=== PATIENT | male | born 1970 | race Caucasian/White ===

== ENCOUNTER 2017-07-19 19:53 | Emergency (ER) | payer MEDICARE, OTHER ==
[~2017-07-19] VITALS: Ht 175.3 cm; Wt 93.0 kg
[2017-07-19] MEDS: LORAZEPAM 2 MG INJ IV ONE ×2 (12:24→23:23)
[2017-07-19 19:59] VITALS: Ht 175.3 cm; Wt 93.0 kg
[2017-07-19 22:25] LABS: BASOPHILS % 0.5 % (0.0-2.0); EOSINOPHILS # 0.1 10^3/ul (0.0-0.5); HEMATOCRIT 42.2 % (42.0-52.0); HEMOGLOBIN 14.3 g/dl (14.0-18.0); LYMPHOCYTES % 49.5 % (15.0-51.0); MEAN CORPUSCULAR HEMOGLOBIN 32.3 pg (29.0-33.0); MEAN CORPUSCULAR HGB CONC 33.9 g/dl (32.0-37.0); MEAN CORPUSCULAR VOLUME 95.3 fl (82.0-101.0); MEAN PLATELET VOLUME 10.3 fl (7.4-10.4); MONOCYTE # 0.5 10^3/ul (0.3-0.9); MONOCYTES % 8.7 % (0.0-11.0); NEUTROPHIL # 2.4 10^3/ul (1.6-7.5); PLATELET COUNT 139 10^3/UL (140-415); POSITIVE DIFF @See below; RED BLOOD COUNT 4.43 10^6/ul (4.70-6.10); RED CELL DISTRIBUTION WIDTH 11.9 % (11.5-14.5); WHITE BLOOD COUNT 6.1 10^3/ul (4.8-10.8)
[2017-07-19 22:48] LABS: ALANINE AMINOTRANSFERASE 33 IU/L (13-69); ALBUMIN 4.2 g/dl (3.3-4.9); ALBUMIN/GLOBULIN RATIO 1.35; ALKALINE PHOSPHATASE 67 IU/L (42-121); ANION GAP 13 (8-16); ASPARTATE AMINO TRANSFERASE 28 IU/L (15-46); BILIRUBIN,INDIRECT 0.1 mg/dl (0-1.1); BILIRUBIN,TOTAL 0.1 mg/dl (0.2-1.3); BLOOD UREA NITROGEN 15 mg/dl (7-20); CALCIUM 9.2 mg/dl (8.4-10.2); CARBON DIOXIDE 26 mmol/L (21-31); CHLORIDE 105 mmol/L (97-110); CREATININE 0.87 mg/dl (0.61-1.24); GLUCOSE 96 mg/dl (70-220); POTASSIUM 4.3 mmol/L (3.5-5.1); SODIUM 140 mmol/L (135-144); TOTAL PROTEIN 7.3 g/dl (6.1-8.1)
[2017-07-19 22:49] LABS: BARBITURATES Negative (NEGATIVE); BENZODIAZEPINES Negative (NEGATIVE); CANNABINOIDS Negative (NEGATIVE); COCAINE Negative (NEGATIVE); OPIATES Negative (NEGATIVE)
[2017-07-19 22:50] LABS: ETHANOL < 10.0 mg/dl
--- NOTE | 2017-07-19 22:50 | ERD ---
ER Documentation Chief Complaint Date/Time DATE: 07/19/17 TIME: 22:46 Chief Complaint BIB RA FOR ANXIETY AT HOME, HX OF AUTISM HPI Is a 47-year-old male with a history of mental retardation, anxiety, learning disability who is here for agitation. The patient says that he is having anxiety as well. For the past 2 days the patient's been very difficult to deal with that his adult halfway. Has been irritable and angry and picking fights with the staff and throwing things. The patient says he is having anxiety attacks with chest pain shortness of breath tremors sense of impending doom. The patient says she has had these anxiety attacks multiple times in the past and it is the same. The patient was admitted to a psych hospital for hearing voices for due to psychosis in January but he is not hearing voices now. He says he is not suicidal or homicidal. ROS All systems reviewed and are negative except as per history of present illness. Medications Home Meds Reported Medications Quetiapine Fumarate* (Seroquel* XR) 400 Mg Tab.sr.24h, 400 MG PO QHS, #30 TAB 07/20/17 Quetiapine Fumarate* (Quetiapine Fumarate*) 100 Mg Tablet, 100 MG PO BID, TAB 07/20/17 Benazepril Hcl* (Benazepril Hcl*) 10 Mg Tablet, 10 MG PO DAILY, #30 TAB 07/20/17 Naproxen* (Naproxen*) 500 Mg Tablet, 500 MG PO BID Y for PAIN LEVEL 1-5, TAB 07/20/17 Benztropine Mesylate* (Benztropine Mesylate*) 0.5 Mg Tablet, 0.5 MG PO TID, TAB 07/20/17 Carbamazepine* (Tegretol*) 100 Mg/5 Ml Susp, 200 MG GTB BID, ML 07/20/17 Divalproex Sodium* (Depakote ER*) 500 Mg Tabsr, 500 MG PO BID, #30 TAB.SA 07/20/17 Fluvoxamine Maleate* (Luvox*) 50 Mg Tab, 100 MG PO DAILY, TAB TAKE 1 AND 1/2 TABLETS BY MOUTH DAILY 07/20/17 Nicotine* (Nicotine* Patch) 21 mg/day Patch, 1 EACH TD DAILY, PATCH 07/20/17 Allergies Allergies: Coded Allergies: No Known Allergy (Unverified , 07/19/17) PMhx/Soc Hx Neurological Disorder: Yes (seizure disorder) Hx Cardiac Disorders: Yes (htn) Hx Psychiatric Problems: No Hx Miscellaneous Medical Probl: Yes (anxiety, mental retardation, intermittent disorder) Hx Alcohol Use: No Hx Substance Use: No Hx Tobacco Use: Yes Smoking Status: Current every day smoker FmHx Family History: No coronary disease Physical Exam Vitals Vital Signs Date Time Temp Pulse Resp B/P Pulse Ox O2 Delivery O2 Flow Rate FiO2 07/19/17 19:59 98.5 92 18 148/91 100 Physical Exam Const: Well-developed, well-nourished Head: Atraumatic, normocephalic Eyes: Normal Conjunctiva, PERRLA, EOMI, normal sclera, no nystagmus ENT: Normal External Ears, Nose and Mouth, moist mucus membranes. Neck: Full range of motion. No meningismus, no lymphadenopathy. Resp: Clear to auscultation bilaterally, no wheezing, rhonchi, rales Cardio: Regular rate and rhythm, no murmurs, S1 S2 present Abd: Soft, non tender x 4, non distended. Normal bowel sounds, no guarding or rebound, no pulsitile abdominal masses or bruits Skin: No petechiae or rashes, no ecchymosis , no maculopapular rash Back: No midline or flank tenderness Ext: No cyanosis, or edema, FROM x 4, normal inspection, neurovascularly intact x 4 Neur: Awake and alert, STR 5/5 x 4, sensation intact x 4, no focal findings, cerebellum intact Psych: Anxious] Result Diagram: 07/19/17219907/19/172199 Results 24 hrs Laboratory Tests Test 07/19/17 22:00 07/19/17 22:09 07/19/17 22:20 White Blood Count 6.110^3/ul Red Blood Count 4.4310^6/ul Hemoglobin 14.3g/dl Hematocrit 42.2% Mean Corpuscular Volume 95.3fl Mean Corpuscular Hemoglobin 32.3pg Mean Corpuscular Hemoglobin Concent 33.9g/dl Red Cell Distribution Width 11.9% Platelet Count 15721^3/UL Mean Platelet Volume 10.3fl Neutrophils % 40.0% Lymphocytes % 49.5% Monocytes % 8.7% Eosinophils % 1.0% Basophils % 0.5% Nucleated Red Blood Cells % 0.0/100WBC Neutrophils # 2.410^3/ul Lymphocytes # 3.010^3/ul Monocytes # 0.510^3/ul Eosinophils # 0.110^3/ul Basophils # 0.010^3/ul Nucleated Red Blood Cells # 0.010^3/ul Sodium Level 140mmol/L Potassium Level 4.3mmol/L Chloride Level 105mmol/L Carbon Dioxide Level 26mmol/L Anion Gap 13 Blood Urea Nitrogen 15mg/dl Creatinine 0.87mg/dl Glucose Level 96mg/dl Calcium Level 9.2mg/dl Total Bilirubin 0.1mg/dl Direct Bilirubin 0.00mg/dl Indirect Bilirubin 0.1mg/dl Aspartate Amino Transf (AST/SGOT) 28IU/L Alanine Aminotransferase (ALT/SGPT) 33IU/L Alkaline Phosphatase 67IU/L Total Protein 7.3g/dl Albumin 4.2g/dl Globulin 3.10g/dl Albumin/Globulin Ratio 1.35 Ethyl Alcohol Level < 10.0mg/dl Urine Opiates Screen Negative Urine Barbiturates Negative Urine Amphetamines Screen Negative Urine Benzodiazepines Screen Negative Urine Cocaine Screen Negative Urine Cannabinoids Negative Troponin I < 0.012ng/ml Current Medications Medications (Trade) Dose Ordered Sig/Benson Route PRN Reason Start Time Stop Time Status Last Admin Dose Admin Lorazepam (Ativan) 1 mg ONCE ONCE IV 07/19/17 22:30 07/19/17 22:31 DC 07/20/17 00:25 Procedures/MDM EKG: Rate/Rhythm: Normal Sinus Rhythm,NL intervals QRS, ST, QT: NORMAL ME, QRS, QT] Impression: NORMAL EKG Patient was evaluated by telemetry psychiatrist recommended 5150 hold. Patient apparently told the psychiatrist that he is hearing voices telling him to hurt his fellow staff members at his adult halfway. He did not elicit this information to me. He is placed on a 5150 hold and will be transferred to psych inpatient Departure Diagnosis: Primary Impression: Anxiety Additional Impression: Psychosis Psychosis type: unspecified psychosis type Qualified Code: F29 - Psychosis, unspecified psychosis type Condition: Stable JOSEMANUEL KILLIAN DO Jul 19, 2017 22:50
[2017-07-20] MEDS ORDERED: UDTEG GTB (00:17)
[2017-07-20] MEDS ORDERED: BENZ0.5T3 PO (00:17)
[2017-07-20] MEDS ORDERED: BENA10TA48 PO (00:17)
[2017-07-20] MEDS ORDERED: QUET100T32 PO (00:17)
[2017-07-20] MEDS ORDERED: NICO1PAT6 TD (00:17)
[2017-07-20] MEDS ORDERED: NAPR-688 PO (00:17)
[2017-07-20] MEDS ORDERED: DIVA500T7 PO (00:17)
[2017-07-20] MEDS ORDERED: BLVX50T PO (00:17)
[2017-07-20] MEDS ORDERED: QUET400T4 PO (00:17)
[2017-07-20] MEDS: LORAZEPAM 2 MG INJ IV ONE (00:25)
--- NOTE | 2017-07-20 00:31 | PSY ---
Date/Time of Note Date/Time of Note DATE: 07/20/17 TIME: 00:14 Psychiatric Subjective Eval Consent Pt consented to telemedicine: Yes Subjective Evaluation Patient location: emergency Chief Complaint: BIB RA FOR ANXIETY AT HOME, HX OF AUTISM Reason for consult: agitation History of present illness patient is a 47 yo male with PPH Of mild MR and schizoaffective do who lives in a adult residential home that was brought in by his care givers from the residence due to 2 weeks of worsening agitation. His chiropractic care states that he started to share with them that he was hearing voices telling him to hurt other people, he started to become more and more disorganized and agitated, pushing residents around, hitting his hand against the wall not compliant to rules, paranoid and having anxiety attacks. He had a similar episode few months ago, was admitted and his medication were adjusted and he did really well until about 2 weeks ago. No change of environment, no change of staff or residents, no change of family visits, no recent change of medication. he sleeps and eat well. patient tells me " i hear voices telling me to hurt a client" , denies any SI, denies feeling depressed, he says " i have panic attack and chest pain" no drug or alcohol use. Hospitalization: yes Family History none Medical history Problems Medical Problems: (1) Anxiety Status: Acute Allergies: Coded Allergies: No Known Allergy (Unverified , 07/19/17) Substance Abuse Substance use: No known substance abuse Social History Marital status: single Level of education: hs DPA/Conservatorship: No Occupation/Shelter: no Psychiatric Objective Eval Review of Systems: Review of Systems: Not Applicable Physical Examination: Physical Examination: Applicable Sleep: Adequate Appetite: Adequate Energy: Adequate Interest: Adequate Mental Status Examination: Appearance: Groomed Eye Contact: Good Psychomotor Activity: Normal Behavior: Cooperative Speech: Clear AFFECT: Appropriate, Depressed, Anxious Mood: Anxious Though Process: Linear Thought Content: Hallucinations Suicidal: No Homicidal: Yes On 72 hour hold: No Orientation: x2 Insight: Impared Judgement: Impared Attention Span: Intact Laboratory Results Laboratory Tests Test 07/19/17 22:00 07/19/17 22:09 07/19/17 22:20 White Blood Count 6.110^3/ul Red Blood Count 4.4310^6/ul Hemoglobin 14.3g/dl Hematocrit 42.2% Mean Corpuscular Volume 95.3fl Mean Corpuscular Hemoglobin 32.3pg Mean Corpuscular Hemoglobin Concent 33.9g/dl Red Cell Distribution Width 11.9% Platelet Count 10604^3/UL Mean Platelet Volume 10.3fl Neutrophils % 40.0% Lymphocytes % 49.5% Monocytes % 8.7% Eosinophils % 1.0% Basophils % 0.5% Nucleated Red Blood Cells % 0.0/100WBC Neutrophils # 2.410^3/ul Lymphocytes # 3.010^3/ul Monocytes # 0.510^3/ul Eosinophils # 0.110^3/ul Basophils # 0.010^3/ul Nucleated Red Blood Cells # 0.010^3/ul Sodium Level 140mmol/L Potassium Level 4.3mmol/L Chloride Level 105mmol/L Carbon Dioxide Level 26mmol/L Anion Gap 13 Blood Urea Nitrogen 15mg/dl Creatinine 0.87mg/dl Glucose Level 96mg/dl Calcium Level 9.2mg/dl Total Bilirubin 0.1mg/dl Direct Bilirubin 0.00mg/dl Indirect Bilirubin 0.1mg/dl Aspartate Amino Transf (AST/SGOT) 28IU/L Alanine Aminotransferase (ALT/SGPT) 33IU/L Alkaline Phosphatase 67IU/L Total Protein 7.3g/dl Albumin 4.2g/dl Globulin 3.10g/dl Albumin/Globulin Ratio 1.35 Ethyl Alcohol Level < 10.0mg/dl Urine Opiates Screen Negative Urine Barbiturates Negative Urine Amphetamines Screen Negative Urine Benzodiazepines Screen Negative Urine Cocaine Screen Negative Urine Cannabinoids Negative Troponin I < 0.012ng/ml Assessment and Plan Assessment/Diagnosis [place] I: schizoaffective do depressed type anxiety do nos [place] II: mild MR [place] III: seizure do [place] IV: poor social support [place] V: gaf 25 Recommendation/Plan Medication Management ativan 0.5 mg po tid for anxiety add fluvoxamine 25 mg po qam to the 100 mg but if the 100 mg in am then give qhs if qhs then give am for anxiety continue all other medication Follow-up/Disposition Patient cannot be treated at a lower level of care today due to danger to others and GRAVE DISABLITY including an inability to carry out basic transactions necessary for survival in these areas and as evidenced by these behaviors: - Unable to seek out Food, Unable to seek out Clothing, Unable to seek out Prison, Severe Financial Incompetence, Severe Failure to Adjust in the Community, Severe Incompetence in Regards to Health Self-Management - Patient is labile,intrusive and socially inappropriate with personal boundaries - Confused, disoriented and/or grossly unable to distinguish reality from illusion -Requires near constant monitoring to prevent inadvertent danger to self and others -No family members willing and able to care for patient in the community with this mental state 5150 Recommendation: Place RICCI Bynum MD Jul 20, 2017 00:26
--- NOTE | 2017-07-20 17:43 | PSY ---
Date/Time of Note Date/Time of Note DATE: 07/20/17 TIME: 17:38 Psychiatric Subjective Eval Consent Pt consented to telemedicine: Yes Subjective Evaluation Patient location: emergency Chief Complaint: BIB RA FOR ANXIETY AT HOME, HX OF AUTISM Reason for consult: agitation History of present illness patient is a 47 yo male with PPH Of mild MR and schizoaffective do who lives in a adult residential home that was brought in by his care givers from the residence due to 2 weeks of worsening agitation. His caregiver services home states that he started to share with them that he was hearing voices telling him to hurt other people, he started to become more and more disorganized and agitated, pushing residents around, hitting his hand against the wall not compliant to rules, paranoid and having anxiety attacks. He had a similar episode few months ago, was admitted and his medication were adjusted and he did really well until about 2 weeks ago. No change of environment, no change of staff or residents, no change of family visits, no recent change of medication. he sleeps and eat well. patient tells me " i hear voices telling me to hurt a client" , denies any SI, denies feeling depressed, he says " i have panic attack and chest pain" no drug or alcohol use. Pt states, he hears voices telling him to hurt himself and others, he needs to "go somethere where they will adjust meds". Not able to contract for safety. Anxious. Hospitalization: yes Medical history Problems Medical Problems: (1) Anxiety Status: Acute (2) Psychosis Status: Acute Allergies: Coded Allergies: No Known Allergy (Unverified , 07/19/17) Substance Abuse Substance use: No known substance abuse Social History Marital status: single Level of education: hs DPA/Conservatorship: No Occupation/Fpc: no Psychiatric Objective Eval Mental Status Examination: Appearance: Disheveled Eye Contact: Fair Psychomotor Activity: Normal Behavior: Cooperative Speech: Clear AFFECT: Blunt Mood: Anxious Though Process: Perseverative Thought Content: Hallucinations Suicidal: Yes Homicidal: Yes Orientation: x2 Cognition: Alert Insight: Impared Judgement: Impared Laboratory Results Laboratory Tests Test 07/19/17 22:00 07/19/17 22:09 07/19/17 22:20 White Blood Count 6.110^3/ul Red Blood Count 4.4310^6/ul Hemoglobin 14.3g/dl Hematocrit 42.2% Mean Corpuscular Volume 95.3fl Mean Corpuscular Hemoglobin 32.3pg Mean Corpuscular Hemoglobin Concent 33.9g/dl Red Cell Distribution Width 11.9% Platelet Count 58529^3/UL Mean Platelet Volume 10.3fl Neutrophils % 40.0% Lymphocytes % 49.5% Monocytes % 8.7% Eosinophils % 1.0% Basophils % 0.5% Nucleated Red Blood Cells % 0.0/100WBC Neutrophils # 2.410^3/ul Lymphocytes # 3.010^3/ul Monocytes # 0.510^3/ul Eosinophils # 0.110^3/ul Basophils # 0.010^3/ul Nucleated Red Blood Cells # 0.010^3/ul Sodium Level 140mmol/L Potassium Level 4.3mmol/L Chloride Level 105mmol/L Carbon Dioxide Level 26mmol/L Anion Gap 13 Blood Urea Nitrogen 15mg/dl Creatinine 0.87mg/dl Glucose Level 96mg/dl Calcium Level 9.2mg/dl Total Bilirubin 0.1mg/dl Direct Bilirubin 0.00mg/dl Indirect Bilirubin 0.1mg/dl Aspartate Amino Transf (AST/SGOT) 28IU/L Alanine Aminotransferase (ALT/SGPT) 33IU/L Alkaline Phosphatase 67IU/L Total Protein 7.3g/dl Albumin 4.2g/dl Globulin 3.10g/dl Albumin/Globulin Ratio 1.35 Ethyl Alcohol Level < 10.0mg/dl Urine Opiates Screen Negative Urine Barbiturates Negative Urine Amphetamines Screen Negative Urine Benzodiazepines Screen Negative Urine Cocaine Screen Negative Urine Cannabinoids Negative Troponin I < 0.012ng/ml Assessment and Plan Assessment/Diagnosis [place] I: SCHIZOAFFECTIVE DISORDER.PERVASIVE DEVELOPMENTAL DISORDER [place] II: MILD MR [place] III: SEIZURE D/O [place] IV: SEVERE [place] V: 15 Recommendation/Plan Medication Management continue current meds Psychotherapy defer to inpt Follow-up/Disposition continue on 510 and transfer to in psych. 5150 Recommendation: Continue Hold JAGUAR GUPTA MD Jul 20, 2017 17:43
--- NOTE | 2017-07-21 09:10 | PSY ---
Date/Time of Note Date/Time of Note DATE: 07/21/17 TIME: 09:07 Psychiatric Subjective Eval Consent Pt consented to telemedicine: Yes Subjective Evaluation Patient location: emergency Chief Complaint: BIB RA FOR ANXIETY AT HOME, HX OF AUTISM Reason for consult: agitation History of present illness Spoke with Dr Mcdaniel: JASON requeste re-eval, because, in JASON's opinion, pt is calm in ED. Pt seen, re-evaluated, "I am fine. I just need my medications changed, that's what the staff says". Pt denies now AH, he is still anxious and says he needs med change. Hospitalization: yes Medical history Problems Medical Problems: (1) Anxiety Status: Acute (2) Psychosis Status: Acute Allergies: Coded Allergies: No Known Allergy (Unverified , 07/19/17) Social History Marital status: single Level of education: hs DPA/Conservatorship: No Occupation/Shelter: no Psychiatric Objective Eval Mental Status Examination: Appearance: Disheveled Eye Contact: Good Psychomotor Activity: Normal Behavior: Cooperative Speech: Clear AFFECT: Anxious Mood: Anxious Though Process: Perseverative Thought Content: Hallucinations Suicidal: No Homicidal: No On 72 hour hold: Yes Orientation: x2 Cognition: Alert Insight: Impared Judgement: Impared Laboratory Results Laboratory Tests Test 07/19/17 22:00 07/19/17 22:09 07/19/17 22:20 White Blood Count 6.110^3/ul Red Blood Count 4.4310^6/ul Hemoglobin 14.3g/dl Hematocrit 42.2% Mean Corpuscular Volume 95.3fl Mean Corpuscular Hemoglobin 32.3pg Mean Corpuscular Hemoglobin Concent 33.9g/dl Red Cell Distribution Width 11.9% Platelet Count 90561^3/UL Mean Platelet Volume 10.3fl Neutrophils % 40.0% Lymphocytes % 49.5% Monocytes % 8.7% Eosinophils % 1.0% Basophils % 0.5% Nucleated Red Blood Cells % 0.0/100WBC Neutrophils # 2.410^3/ul Lymphocytes # 3.010^3/ul Monocytes # 0.510^3/ul Eosinophils # 0.110^3/ul Basophils # 0.010^3/ul Nucleated Red Blood Cells # 0.010^3/ul Sodium Level 140mmol/L Potassium Level 4.3mmol/L Chloride Level 105mmol/L Carbon Dioxide Level 26mmol/L Anion Gap 13 Blood Urea Nitrogen 15mg/dl Creatinine 0.87mg/dl Glucose Level 96mg/dl Calcium Level 9.2mg/dl Total Bilirubin 0.1mg/dl Direct Bilirubin 0.00mg/dl Indirect Bilirubin 0.1mg/dl Aspartate Amino Transf (AST/SGOT) 28IU/L Alanine Aminotransferase (ALT/SGPT) 33IU/L Alkaline Phosphatase 67IU/L Total Protein 7.3g/dl Albumin 4.2g/dl Globulin 3.10g/dl Albumin/Globulin Ratio 1.35 Ethyl Alcohol Level < 10.0mg/dl Urine Opiates Screen Negative Urine Barbiturates Negative Urine Amphetamines Screen Negative Urine Benzodiazepines Screen Negative Urine Cocaine Screen Negative Urine Cannabinoids Negative Troponin I < 0.012ng/ml Assessment and Plan Assessment/Diagnosis [place] I: SChizoaffective dsiorder. PDD. Recommendation/Plan Medication Management Please continue current meds regime. Due to the complexity of pt's conditions and recent agitation, command AH telling him to hurt others, pt can not be released and requires inpt psych treatment. Follow-up/Disposition Please transfer to inpt psych. 5150 Recommendation: Continue Hold JAGUAR GUPTA MD Jul 21, 2017 09:10
[2017-07-22] MEDS ORDERED: ACETAMINOPHEN 325 MG TAB PO ONE (05:30)
--- NOTE | 2017-07-23 09:13 | PSY ---
Date/Time of Note Date/Time of Note DATE: 07/23/17 TIME: 09:08 Psychiatric Subjective Eval Consent Pt consented to telemedicine: Yes Subjective Evaluation Patient location: emergency Chief Complaint: BIB RA FOR ANXIETY AT HOME, HX OF AUTISM Reason for consult: reevaluate he has been here for 84 hrs History of present illness patient is a 47 yo male with PPH Of mild MR and schizoaffective do who lives in a adult residential home that was brought in by his care givers from the residence due to 2 weeks of worsening agitation. His acute care occupational therapist states that he started to share with them that he was hearing voices telling him to hurt other people, he started to become more and more disorganized and agitated, pushing residents around, hitting his hand against the wall not compliant to rules, paranoid and having anxiety attacks. He had a similar episode few months ago, was admitted and his medication were adjusted and he did really well until about 2 weeks ago. No change of environment, no change of staff or residents, no change of family visits, no recent change of medication. he sleeps and eat well. patient tells me " i hear voices telling me to hurt a client" , denies any SI, denies feeling depressed, he says " i have panic attack and chest pain" no drug or alcohol use. Pt states, he hears voices telling him to hurt himself and others, he needs to "go somethere where they will adjust meds". Not able to contract for safety. Anxious. He has been in the ED x 84 hrs. As per the ED doctor Dr Giles, he has done well, he is not agitated, he wants to go back to his snf . He stated that h no longer hears any voices, he feels OK. Past psychiatric history schizoaffective disorder, autism Hospitalization: yes Medical history Problems Medical Problems: (1) Anxiety Status: Acute (2) Psychosis Status: Acute Allergies: Coded Allergies: No Known Allergy (Unverified , 07/19/17) Substance Abuse Substance use: No known substance abuse Social History Marital status: single Level of education: DPA/Conservatorship: No Occupation/[facility]: no Psychiatric Objective Eval Review of Systems: Review of Systems: Not Applicable Physical Examination: Physical Examination: Not Applicable Sleep: Adequate Appetite: Adequate Energy: Adequate Mental Status Examination: Eye Contact: Good Psychomotor Activity: Normal Behavior: Cooperative Speech: Clear AFFECT: Appropriate Mood: Appropriate/Full Though Process: Linear Thought Content: Normal Suicidal: No Homicidal: No Orientation: x3 Cognition: Alert Insight: Intact Judgement: Intact Attention Span: Intact Laboratory Results Laboratory Tests Test 07/22/17 04:50 07/22/17 10:11 Carbamazepine (Tegretol) Level < 3.0ug/ml Valproic Acid (Depakene) Level < 10ug/ml Assessment and Plan Assessment/Diagnosis [place] I: schizoaffective diosrder mixed with psychotic features Recommendation/Plan Medication Management Increase Depakote to 500mg in AM, 1000mg HS Increase Seroquel to 100mg in am, 100mg at noon and 100mg at 5 PM, continue 40mg HS Depakote level , in 7 days with LFT , CBC continue rest of the meds as they have been Pt. Caregiver/Family Education He is no longer expressing SI, HI, he has been pleasant an cooperative her as per Dr Mcdaniel. Hence, I will release hold and d/c him to his gr home with a f/u out patient psych 5150 Recommendation: Release Hold GINA ESPINOZA MD Jul 23, 2017 09:13
[2017-07-23 12:03] VITALS: BP 142/92; PULSE 83; RESP 20; TEMP 97.8
== END 2017-07-23 12:23 ==
LOC: FTE 19:53 → E/R 07-23 12:23
DX: F41.9 Anxiety disorder, unspecified (principal); F29 Unspecified psychosis not due to a substance or known physiological condition; F84.0 Autistic disorder; I10 Essential (primary) hypertension; F17.210 Nicotine dependence, cigarettes, uncomplicated
CPT/HCPCS: 80053; 80156; 80164; 80306; 80307; 84484; 85025; 93005; 96374; 99285; J2060